=== PATIENT | female | born 1965 | race Caucasian/White ===

== ENCOUNTER 2018-02-03 12:57 | Emergency (ER) | payer SELFPAY ==
[~2018-02-03] VITALS: Ht 154.9 cm; Wt 70.0 kg
[2018-02-03 13:02] VITALS: BP 161/94
[2018-02-03] MEDS ORDERED: KETOROLAC 30 MG/1 ML IM ONE (13:30)
[2018-02-03] MEDS ORDERED: KETOROLAC 30 MG/1 ML ONE (13:48)
== END 2018-02-03 14:10 | disposition home or self-care (01) ==
LOC: ED 14:04
DX: S41.012A Laceration without foreign body of left shoulder, initial encounter (principal); M75.32 Calcific tendinitis of left shoulder; M25.512 Pain in left shoulder; F17.200 Nicotine dependence, unspecified, uncomplicated; W11.XXXA Fall on and from ladder, initial encounter; Y93.89 Activity, other specified; Y99.8 Other external cause status; Y92.89 Other specified places as the place of occurrence of the external cause
CPT/HCPCS: 73030; 96372; 99284; J1885